=== PATIENT | female | born 1960 | race Caucasian/White ===

== ENCOUNTER 2020-09-17 15:19 | Day surgery (SDC) | payer BC ==
[~2020-09-17 15:19] MED LIST: Bupivacaine PF 0.75% SDV 10 ML ONE; CEFAZOLIN 1 GM VIAL ONE; Lidocaine 1% PF 5 ML VIAL ONE; Lidocaine 4% PF 5 ML AMP ONE; Maxitrol 0.1% Opth Oint 3.5 GM TUBE ONE; PROPOFOL 200 MG/20 ML VIAL ONE; Triamcinolone 40 MG/ML VIAL ONE
[2020-09-17] MEDS ORDERED: Phenylephrine 2.5% Ophth Soln 5 ML BOT ONE (16:13)
[2020-09-17] MEDS ORDERED: Cyclopentolate HCl 1% 5 ML BOT ONE (16:14)
[2020-09-17 16:58] LABS: SARS-CoV-2 NAA Rapid Test Not Detected (NotDetected)
[2020-09-17] MEDS ORDERED: Phenylephrine 2.5% Ophth Soln 5 ML BOT FS SCH (17:00)
[2020-09-17] MEDS ORDERED: Cyclopentolate 1% Opth Drop 2 ML BOT FS SCH (17:00)
[2020-09-17] MEDS ORDERED: EPINEPHrine 0.3 MG in Ophthalmic Irrigation Solution 500 ML IRR SCH (17:15)
[2020-09-17] MEDS ORDERED: Fentanyl 100 MCG/2 ML VIAL ONE (17:46)
[2020-09-17] MEDS ORDERED: Midazolam HCl 2 mg/2 ml Vial ONE (17:46)
[2020-09-17] MEDS ORDERED: HYDROcodone/Acetaminophen 5/325 mg Tablet ONE (19:35)
--- NOTE | 2020-09-18 01:58 | OP ---
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 PROCEDURES PERFORMED: 1. 25-gauge pars plana vitrectomy, right eye. 2. Rhegmatogenous retinal detachment repair, right eye. 3. Endolaser, right eye. 4. 15% SF6 fill, right eye. ESTIMATED BLOOD LOSS: None. SPECIMENS REMOVED: None. COMPLICATIONS: None. ANESTHESIA: MAC with sub-Tenon's block. DESCRIPTION OF PROCEDURE: The patient was identified in the preoperative holding area, where the correct eye being the right eye was marked for surgery. The patient was taken to the operating room, where MAC anesthesia was induced. The right eye was prepped and draped in usual sterile ophthalmic fashion for surgery. A wire-clip lid speculum was placed. An inferonasal conjunctival peritomy was fashioned with Alex scissors for administration of sub-Tenon's block. The block consisted of 1:1 ratio of 4% lidocaine and 0.75% Marcaine. Total of 5 mL was administered. A standard 25-gauge pars plana vitrectomy platform was fashioned with trocars placed approximately 3.5 mm from the limbus. The infusion was noted to be within the vitreous cavity prior to being turned on to an infusion pressure of 30 mmHg. The light pipe and micro vitrector were introduced in the eye under visualization of the BIOM viewing system. A macula-on rhegmatogenous retinal detachment was noted from approximately 11 o'clock to 7 o'clock. A small horseshoe tear was noted at approximately 10 o'clock. A careful core and peripheral shave vitrectomy were performed with the assistance of scleral depression. Great care was taken to relieve all traction off the aforementioned defect. Following vitrectomy, the Endo cautery was used to gokul the defect superotemporally as well as to create a superotemporal drainage retinotomy along the posterior edge of the detachment. This retinotomy was subsequently opened with a flute needle and the subsequent air-fluid exchange was performed, which allowed for complete flattening of the retina. Following the air-fluid exchange, the endolaser was used to provide barricade around the retinotomy, the retinal defect as well as the peripheral laser around the area of detached retina peripherally sparing the 9 o'clock meridians. Following Endolaser, the flute needle was reintroduced in the eye to remove any residual subretinal fluid. An air-gas exchange was subsequently performed with 15% SF6. The cannulas were sequentially removed, and all sclerotomies were noted to be gas tight. Subconjunctival Ancef and Kenalog were injected. The wire-clip lid speculum was removed followed by application of TobraDex ophthalmic ointment and a light patch and shield. The patient tolerated the procedure well and was taken to outpatient recovery area in good condition. Job ID: [id number]
== END 2020-09-17 20:15 | disposition home or self-care (01) ==
LOC: SDC 15:19
PROVIDERS: ATTEND Ophthalmology Retina Specialist
PROC: 08T43ZZ Resection of Right Vitreous, Percutaneous Approach (ICD-10-PCS; principal; 2020-09-17)
DX: H33.011 Retinal detachment with single break, right eye (principal); Z88.5 Allergy status to narcotic agent; Z20.828 Contact with and (suspected) exposure to other viral communicable diseases
CPT/HCPCS: 67025; J0171; J0690; J2001; J2250; J2704; J3010; J3301; J3490; U0002

== ENCOUNTER 2022-01-04 11:08 | Observation (INO) | payer BC ==
[2022-01-04 11:33] LABS: #Eosinphils 0.1 thou/uL (0.0-0.7); #Lymphocytes 1.7 thou/uL (1.20-3.40); #Monocytes 0.4 thou/uL (0.11-0.59); %Basophils 0.7 % (0.0-1.0); %Eosinophils 2.2 % (0.0-10.0); %Lymphocytes 40.7 % (21.0-51.0); %Neutrophils 47.4 % (42.0-75.0); Hemoglobin 14.9 g/dL (12.0-16.0); Mean Corpuscular HGB CONC 32.5 g/dL (32.0-36.0); Mean Corpuscular Hemoglobin 32.6 pg (27.0-31.0); Mean Platelet Volume 6.6 fL (7.4-10.4); Platelet Count 215 thou/uL (130-400); RBC Distribution Width 12.4 % (11.5-14.5); Red Blood Cell (RBC) Count 4.57 mill/uL (4.20-5.40); White Blood Cell (WBC) Count 4.3 thou/uL (4.8-10.8)
[2022-01-04 11:40] LABS: INR-International Normal Ratio 0.9; PTT 29.1 sec (22.9-36.1); Prothrombin Time 12.5 sec (12.0-14.7)
[2022-01-04 11:47] LABS: CRP (Inflammatory) Less than 0.50 mg/dL (= or < 0.5)
[2022-01-04 11:48] LABS: ALT (SGPT) 13 U/L (8-55); AST (SGOT) 18 U/L (5-34); Albumin 4.7 g/dL (3.4-4.8); Alkaline Phosphatase 49 U/L (40-110); Anion Gap 12 mmol/L (10-20); BUN (Urea Nitrogen) 11 mg/dL (9.8-20.1); Bilirubin, Total 0.6 mg/dL (0.2-1.2); Calc. Creatinine Clearance 0 mL/min (70-130); Calcium 9.6 mg/dL (7.8-10.44); Carbon Dioxide 26 mmol/L (23-31); Chloride 104 mmol/L (98-107); Globulin 2.7 g/dL (2.4-3.5); Glucose 104 mg/dL (80-115); Protein, Total 7.4 g/dL (5.8-8.1); Sodium 138 mmol/L (136-145)
[2022-01-04] MEDS ORDERED: Acetaminophen 650 MG Suppository PR PRN (14:18)
[2022-01-04] MEDS ORDERED: Ondansetron ODT 4 MG TAB PO PRN (14:18)
[2022-01-04] MEDS ORDERED: Acetaminophen 325 MG TAB PO PRN (14:18)
[2022-01-04] MEDS ORDERED: Ondansetron PF 4 MG/2 ML Vial IVP PRN (14:18)
[2022-01-04] MEDS ORDERED: Labetalol HCl 100 MG/20 ML VIAL SLOW IVP PRN (14:18)
[2022-01-04] MEDS ORDERED: Aspirin 325 mg Enteric Coated Tablet PO SCH (14:30)
[2022-01-04 15:05] LABS: Troponin I Less than 0.010 ng/mL (< 0.028)
[2022-01-04 15:53] VITALS: BMI 21.1
[2022-01-04 17:58] LABS: Troponin I Less than 0.010 ng/mL (< 0.028)
[2022-01-04] MEDS ORDERED: traZODone HCl 50 MG TAB PO PRN (19:38)
[2022-01-04] MEDS ORDERED: Atorvastatin Calcium 40 MG TAB PO SCH (21:00)
[2022-01-05 00:47] LABS: SARS-CoV-2 PCR by NAA Not Detected (NotDetected)
[2022-01-05 04:36] LABS: #Basophils 0.1 thou/uL (0.0-0.2); #Eosinphils 0.1 thou/uL (0.0-0.7); #Lymphocytes 1.6 thou/uL (1.20-3.40); #Monocytes 0.4 thou/uL (0.11-0.59); #Neutrophils 2.1 thou/uL (1.40-6.50); %Basophils 1.3 % (0.0-1.0); %Eosinophils 2.4 % (0.0-10.0); %Lymphocytes 38.7 % (21.0-51.0); %Monocytes 9.3 % (0.0-10.0); %Neutrophils 48.4 % (42.0-75.0); Hemoglobin 13.5 g/dL (12.0-16.0); Mean Corpuscular HGB CONC 33.4 g/dL (32.0-36.0); Mean Platelet Volume 6.7 fL (7.4-10.4); Platelet Count 177 thou/uL (130-400); RBC Distribution Width 12.3 % (11.5-14.5); Red Blood Cell (RBC) Count 3.97 mill/uL (4.20-5.40); White Blood Cell (WBC) Count 4.3 thou/uL (4.8-10.8)
[2022-01-05 04:57] LABS: Anion Gap 12 mmol/L (10-20); BUN (Urea Nitrogen) 14 mg/dL (9.8-20.1); Calc. Creatinine Clearance 76 mL/min (70-130); Calcium 9.1 mg/dL (7.8-10.44); Carbon Dioxide 23 mmol/L (23-31); Cardiac Risk 2.8 (Less than 4.5); Chloride 106 mmol/L (98-107); Cholesterol 202 mg/dl (< 200 Desired); Glucose 91 mg/dL (80-115); HDL Cholesterol 71 mg/dL (>60 Neg Risk); LDL Cholesterol, Calculated 121 mg/dL; Potassium 3.9 mmol/L (3.5-5.1); Sodium 137 mmol/L (136-145); Triglycerides 52 mg/dL (Less than 150)
[2022-01-05] MEDS ORDERED: Lorazepam 2 MG/ML VIAL SLOW IVP PRN (07:30)
[2022-01-05] MEDS ORDERED: Aspirin 81 mg Enteric Coated Tablet PO SCH (09:00)
[2022-01-05] MEDS ORDERED: Lorazepam 2 MG/ML VIAL SLOW IVP SCH (12:30)
[2022-01-05 16:04] VITALS: BP 134/73; TEMP 97.8
== END 2022-01-05 17:48 | disposition home or self-care (01) ==
LOC: ERS 11:08 → 2SW 13:28
PROVIDERS: ADMIT Family Medicine; ATTEND Internal Medicine
DX: R20.0 Anesthesia of skin (principal); R53.1 Weakness; I10 Essential (primary) hypertension; R51.9 Headache, unspecified; M50.21 Other cervical disc displacement, high cervical region; M48.02 Spinal stenosis, cervical region; M25.78 Osteophyte, vertebrae; G51.0 Bell's palsy; Z79.899 Other long term (current) drug therapy; Z98.1 Arthrodesis status; Z20.822 Contact with and (suspected) exposure to COVID-19
CPT/HCPCS: 36415; 36416; 70450; 70551; 71045; 72141; 80048; 80053; 80061; 83735; 84484; 85025; 85610; 85652; 85730; 86140; 93005; 93306; 93880; 96374; 96376; G0378; J2060; U0003; U0005

== ENCOUNTER 2022-03-13 12:21 | Emergency (ER) | payer BC ==
[2022-03-13] MEDS ORDERED: Aspirin Chewable 81 MG TAB ONE (12:53)
[2022-03-13] MEDS ORDERED: Nitroglycerin 2% Ointment 1 INCH/1 GM Packet ONE (12:53)
[2022-03-13 13:00] LABS: #Eosinphils 0.1 thou/uL (0.0-0.7); #Lymphocytes 1.3 thou/uL (1.20-3.40); #Monocytes 0.4 thou/uL (0.11-0.59); #Neutrophils 2.2 thou/uL (1.40-6.50); %Basophils 1.1 % (0.0-1.0); %Eosinophils 1.9 % (0.0-10.0); %Neutrophils 55.1 % (42.0-75.0); Hemoglobin 13.1 g/dL (12.0-16.0); Mean Corpuscular HGB CONC 33.1 g/dL (32.0-36.0); Mean Corpuscular Hemoglobin 33.4 pg (27.0-31.0); Mean Platelet Volume 6.7 fL (7.4-10.4); Platelet Count 204 thou/uL (130-400); RBC Distribution Width 12.4 % (11.5-14.5); Red Blood Cell (RBC) Count 3.91 mill/uL (4.20-5.40)
[2022-03-13 13:23] LABS: Anion Gap 12 mmol/L (10-20); BUN (Urea Nitrogen) 14 mg/dL (9.8-20.1); Calc. Creatinine Clearance 0 mL/min (70-130); Carbon Dioxide 25 mmol/L (23-31); Chloride 106 mmol/L (98-107); Potassium 4.1 mmol/L (3.5-5.1); Sodium 139 mmol/L (136-145)
[2022-03-13 13:24] LABS: ALT (SGPT) 19 U/L (8-55); AST (SGOT) 24 U/L (5-34); Albumin 4.2 g/dL (3.4-4.8); Alkaline Phosphatase 48 U/L (40-110); Bilirubin, Total 0.7 mg/dL (0.2-1.2); Globulin 2.5 g/dL (2.4-3.5); Glucose 95 mg/dL (80-115); Lipase 45 U/L (8-78); Protein, Total 6.7 g/dL (5.8-8.1)
== END 2022-03-13 15:00 | disposition short-term general hospital (02) ==
LOC: ERS 12:21
DX: I10 Essential (primary) hypertension (principal); Z86.73 Personal history of transient ischemic attack (TIA), and cerebral infarction without residual deficits; Z79.899 Other long term (current) drug therapy
CPT/HCPCS: 71045; 80053; 83690; 84484; 85025; 93005